=== PATIENT | female | born 1930 | race Caucasian/White ===

== ENCOUNTER → 2017-01-14 | Outpatient (CLI) | payer MEDICARE, BC ==
--- NOTE | 2017-01-16 07:00 | MM ---
Reason for exam: screening (asymptomatic). Last mammogram was performed 2 years and 7 months ago. History: Patient is postmenopausal. Family history of breast cancer in sister at age 77. Physical Findings: A clinical breast exam by your physician is recommended on an annual basis and results should be correlated with mammographic findings. MG Screening Mammo w CAD Bilateral CC and MLO view(s) were taken. Prior study comparison: June 16, 2014, right breast MG diagnostic mammo RT w CAD. November 12, 2013, right breast MG work up mamm w CAD RT. November 06, 2013, bilateral MG screening mammo w CAD. November 05, 2012, bilateral digital screening mammo w/CAD. There are scattered fibroglandular densities. No significant changes when compared with prior studies. ASSESSMENT: Negative, BI-RAD 1 RECOMMENDATION: Routine screening mammogram of both breasts in 1 year.
== END | disposition home or self-care (01) ==
LOC: RADMAMWWP 12:47
PROVIDERS: ATTEND Family Medicine
DX: Z12.31 Encounter for screening mammogram for malignant neoplasm of breast (principal)

== ENCOUNTER → 2019-03-31 | Outpatient (CLI) | payer MEDICARE ==
--- NOTE | 2019-04-02 09:56 | MM ---
Reason for exam: screening (asymptomatic). Last mammogram was performed 1 year and 1 month ago. History: Patient is postmenopausal. Family history of breast cancer in sister at age 77. Physical Findings: A clinical breast exam by your physician is recommended on an annual basis and results should be correlated with mammographic findings. MG Screening Mammo w CAD Bilateral CC and MLO view(s) were taken. Prior study comparison: March 13, 2018, bilateral MG 3d screening mammo w/cad. January 14, 2017, bilateral MG screening mammo w CAD. There are scattered fibroglandular densities. No significant changes when compared with prior studies. ASSESSMENT: Benign, BI-RAD 2 RECOMMENDATION: Routine screening mammogram of both breasts in 1 year.
== END | disposition home or self-care (01) ==
LOC: RADMAMWWP 14:59
PROVIDERS: ATTEND Family Medicine
DX: Z12.31 Encounter for screening mammogram for malignant neoplasm of breast (principal)
CPT/HCPCS: 77067

== ENCOUNTER 2019-07-15 09:06 | Inpatient (IN) | payer MEDICARE ==
[2019-07-15] MEDS ORDERED: SODIUM CHLORIDE 0.9% 1,000 ML IV STA (09:43)
[2019-07-15] MEDS ORDERED: PANTOPRAZOLE 40 MG/10 ML VIAL IVP STA (09:44)
[2019-07-15] MEDS ORDERED: ONDANSETRON 4 MG/2 ML VIAL IVP STA (09:44)
--- NOTE | 2019-07-15 10:21 | ED ---
General Adult HPI - General Chief complaint: Nausea/Vomiting/Diarrhea Stated complaint: Vomiting blood Time Seen by Provider: 07/15/19 09:37 Source: patient, RN notes reviewed Mode of arrival: ambulatory Limitations: no limitations - History of Present Illness Initial comments: This an 88-year-old female presents emergency Department chief complaint of nausea vomiting. Patient states that she has been vomiting for most of the night. Patient has several episodes of emesis she states that she noticed that she started having bright red blood. She has no significant abdominal pain states she has mild discomfort. No chest pain or shortness breath no headache or dizziness. Patient did not take any current blood thinners. Denies any recent diarrhea constipation. Patient and family that she ate something bad last night. 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 She does admit she takes insulin her blood sugars have been within normal limits. Patient has no complaints is dysuria, hematuria. Patient states that her emesis contained bright red blood there is no coffee-ground emesis. - Related Data Home Medications Medication Instructions Recorded Confirmed Aspirin 81 mg PO HS 01/19/15 07/15/19 Insulin Aspart [NovoLOG] See Protocol SQ AC-TID 01/19/15 07/15/19 Insulin Glargine [Lantus] 10 - 14 unit SQ HS 01/19/15 07/15/19 Lisinopril [Zestril] 10 mg PO HS 01/19/15 07/15/19 Calcium Carbonate [Calcium] 600 mg PO DAILY 07/15/19 07/15/19 Cholecalciferol [Vitamin D3 (25 1,000 unit PO DAILY 07/15/19 07/15/19 Mcg = 1000 Iu)] Multivitamins, Thera [Multivitamin 1 tab PO DAILY 07/15/19 07/15/19 (formulary)] Vitamin E 1,000 unit PO DAILY 07/15/19 07/15/19 Allergies Allergy/AdvReac Type Severity Reaction Status Date / Time Penicillins Allergy Rash/Hives Verified 07/15/19 11:14 Review of Systems ROS Statement: Those systems with pertinent positive or pertinent negative responses have been documented in the HPI. ROS Other: All systems not noted in ROS Statement are negative. Past Medical History Past Medical History: Diabetes Mellitus, Hyperlipidemia, Hypertension History of Any Multi-Drug Resistant Organisms: None Reported Additional Past Surgical History / Comment(s): "part of pancreas removed" "exploratory surgery on my female parts" Past Psychological History: No Psychological Hx Reported Smoking Status: Never smoker Past Alcohol Use History: None Reported Past Drug Use History: None Reported General Exam Limitations: no limitations General appearance: alert, in no apparent distress Head exam: Present: atraumatic, normocephalic, normal inspection Eye exam: Present: normal appearance, PERRL, EOMI. Absent: scleral icterus, conjunctival injection, periorbital swelling ENT exam: Present: normal exam, normal oropharynx, mucous membranes moist Neck exam: Present: normal inspection, full ROM. Absent: tenderness, meningismus, lymphadenopathy Respiratory exam: Present: normal lung sounds bilaterally. Absent: respiratory distress, wheezes, rales, rhonchi, stridor Cardiovascular Exam: Present: regular rate, normal rhythm, normal heart sounds. Absent: systolic murmur, diastolic murmur, rubs, gallop, clicks GI/Abdominal exam: Present: soft, normal bowel sounds. Absent: distended, tende rness, guarding, rebound, rigid Neurological exam: Present: alert, oriented X3 Skin exam: Present: warm, dry, intact, normal color. Absent: rash Course Vital Signs 07/15/19 07/15/19 07/15/19 09:14 10:26 12:12 Temperature 97.9 F Pulse Rate 84 70 Respiratory 20 18 18 Rate Blood Pressure 163/80 147/7 O2 Sat by Pulse 100 96 Oximetry EKG Findings - EKG Comments: EKG Findings:: EKG performed at 11:58 sinus rhythm with first-degree AV block rate of 69 OR to 36 QRS 80 QT/QTC 396 for 17 there is some mild changes in lateral leads, inferior leads have no acute changes compared to prior. Medical Decision Making - Medical Decision Making Patient's hemoglobin is stable, mild leukocytosis 11.4, troponin is elevated at 0.175, there. Changes in lateral leads though she has no complaints of chest pain. Patient did have episodes of hematemesis aspirin, heparin will be held at this time. She will be admitted for suture troponins, further evaluation with cardiology possible GI. Patient will be admitted to but has not. - Lab Data Result diagrams: 07/15/19 10:10 07/15/19 10:10 Lab Results 07/15/19 07/15/19 07/15/19 Range/Units 10:10 10:10 10:10 WBC 11.1 H (3.8-10.6) k/uL RBC 4.21 (3.80-5.40) m/uL Hgb 13.2 (11.4-16.0) gm/dL Hct 39.1 (34.0-46.0) % MCV 92.8 (80.0-100.0) fL MCH 31.3 (25.0-35.0) pg MCHC 33.8 (31.0-37.0) g/dL RDW 13.0 (11.5-15.5) % Plt Count 199 (150-450) k/uL Neutrophils % 89 % Lymphocytes % 5 % Monocytes % 4 % Eosinophils % 1 % Basophils % 0 % Neutrophils # 9.9 H (1.3-7.7) k/uL Lymphocytes # 0.6 L (1.0-4.8) k/uL Monocytes # 0.4 (0-1.0) k/uL Eosinophils # 0.1 (0-0.7) k/uL Basophils # 0.0 (0-0.2) k/uL PT 10.5 (9.0-12.0) sec INR 1.0 (<1.2) APTT 22.7 (22.0-30.0) sec Sodium 136 L (137-145) mmol/L Potassium 4.0 (3.5-5.1) mmol/L Chloride 103 (98-107) mmol/L Carbon Dioxide 27 (22-30) mmol/L Anion Gap 6 mmol/L BUN 23 H (7-17) mg/dL Creatinine 0.71 (0.52-1.04) mg/dL Est GFR (CKD-EPI)AfAm 88 (>60 ml/min/1.73 sqM) Est GFR (CKD-EPI)NonAf 77 (>60 ml/min/1.73 sqM) Glucose 232 H (74-99) mg/dL Plasma Lactic Acid Brday (0.7-2.0) mmol/L Calcium 9.3 (8.4-10.2) mg/dL Magnesium 1.9 (1.6-2.3) mg/dL Total Bilirubin 1.1 (0.2-1.3) mg/dL AST 28 (14-36) U/L ALT 17 (4-34) U/L Alkaline Phosphatase 84 (38-126) U/L Troponin I (0.000-0.034) ng/mL Total Protein 6.7 (6.3-8.2) g/dL Albumin 4.0 (3.5-5.0) g/dL Lipase 48 (23-300) U/L 07/15/19 07/15/19 Range/Units 10:10 10:10 WBC (3.8-10.6) k/uL RBC (3.80-5.40) m/uL Hgb (11.4-16.0) gm/dL Hct (34.0-46.0) % MCV (80.0-100.0) fL MCH (25.0-35.0) pg MCHC (31.0-37.0) g/dL RDW (11.5-15.5) % Plt Count (150-450) k/uL Neutrophils % % Lymphocytes % % Monocytes % % Eosinophils % % Basophils % % Neutrophils # (1.3-7.7) k/uL Lymphocytes # (1.0-4.8) k/uL Monocytes # (0-1.0) k/uL Eosinophils # (0-0.7) k/uL Basophils # (0-0.2) k/uL PT (9.0-12.0) sec INR (<1.2) APTT (22.0-30.0) sec Sodium (137-145) mmol/L Potassium (3.5-5.1) mmol/L Chloride (98-107) mmol/L Carbon Dioxide (22-30) mmol/L Anion Gap mmol/L BUN (7-17) mg/dL Creatinine (0.52-1.04) mg/dL Est GFR (CKD-EPI)AfAm (>60 ml/min/1.73 sqM) Est GFR (CKD-EPI)NonAf (>60 ml/min/1.73 sqM) Glucose (74-99) mg/dL Plasma Lactic Acid Brady 1.1 (0.7-2.0) mmol/L Calcium (8.4-10.2) mg/dL Magnesium (1.6-2.3) mg/dL Total Bilirubin (0.2-1.3) mg/dL AST (14-36) U/L ALT (4-34) U/L Alkaline Phosphatase (38-126) U/L Troponin I 0.175 H* (0.000-0.034) ng/mL Total Protein (6.3-8.2) g/dL Albumin (3.5-5.0) g/dL Lipase (23-300) U/L Disposition Clinical Impression: Nausea & vomiting, Hematemesis, Elevated troponin Disposition: ADMITTED IP TO THIS HOSP Condition: Fair Referrals: Bea Alvarez MD [Primary Care Provider] - 1-2 days
[2019-07-15 10:36] LABS: Basophils % (A) 0 %; Eosinophils # (A) 0.1 k/uL (0-0.7); Eosinophils % (A) 1 %; HCT 39.1 % (34.0-46.0); HGB 13.2 gm/dL (11.4-16.0); Lymphocytes # (A) 0.6 k/uL (1.0-4.8); Lymphocytes % (A) 5 %; MCH 31.3 pg (25.0-35.0); MCHC 33.8 g/dL (31.0-37.0); MCV 92.8 fL (80.0-100.0); Mean Platelet Volume 7.9; Monocytes # (A) 0.4 k/uL (0-1.0); Monocytes % (A) 4 %; Neutrophils # (A) 9.9 k/uL (1.3-7.7); Neutrophils % (A) 89 %; Platelet Count 199 k/uL (150-450); RBC 4.21 m/uL (3.80-5.40); WBC 11.1 k/uL (3.8-10.6)
[2019-07-15 10:46] LABS: ALT 17 U/L (4-34); AST 28 U/L (14-36); African American GFR (CKD) 88 (>60 ml/min/1.73 sqM); Alkaline Phosphatase 84 U/L (38-126); Anion Gap 6 mmol/L; Blood Urea Nitrogen 23 mg/dL (7-17); Calcium 9.3 mg/dL (8.4-10.2); Carbon Dioxide 27 mmol/L (22-30); Chloride 103 mmol/L (98-107); Glucose 232 mg/dL (74-99); Magnesium 1.9 mg/dL (1.6-2.3); Non-African American GFR(CKD) 77 (>60 ml/min/1.73 sqM); Sodium 136 mmol/L (137-145); Total Bilirubin 1.1 mg/dL (0.2-1.3); Total Protein 6.7 g/dL (6.3-8.2)
[2019-07-15 10:51] LABS: Partial Thromboplastin Time 22.7 sec (22.0-30.0); Prothrombin Time 10.5 sec (9.0-12.0)
[2019-07-15] MEDS ORDERED: NITROGLYCERIN SL TABS 0.4 MG TAB SUBLINGUAL PRN (12:21)
--- NOTE | 2019-07-15 14:07 | XR ---
EXAMINATION TYPE: XR chest 2V DATE OF EXAM: 07/15/2019 COMPARISON: NONE TECHNIQUE: PA and lateral views submitted. HISTORY: Vomiting and pain FINDINGS: The lungs are clear and there is no pneumothorax, pleural effusion, or focal pneumonia. Degenerative change of the spine. Use osteopenia shoulders. Biapical. No overt failure. IMPRESSION: 1. No acute process.
--- NOTE | 2019-07-15 14:32 | P.HPIM ---
History of Present Illness 88-year-old female is being admitted for hematemesis and elevated troponin. She had multiple episodes of nausea vomiting along with diffuse nonspecific, no localized diffuse abdominal pain started yesterday which was mostly crampy in nature after multiple episodes of vomiting patient had an episode of hematemesis. Patient denied any obvious chest pain denied any shortness of breath. Patient nausea vomiting started after eating a steak sandwich. Since then patient didn't vomit denied any dark stools or hematochezia. On regular evaluation in ER patient is found to have mildly elevated troponin of 0.[address] depressions in the lateral leads because of which are cardiology was consulted and gastroneurology was consulted for hematemesis and patient is being admitted. Patient is presently on Protonix Review of Systems REVIEW OF SYSTEMS: CONSTITUTIONAL: No fever, no malaise, no fatigue. HEENT: No recent visual problems or hearing problems. Denied any sore throat. CARDIOVASCULAR: No chest pain, orthopnea, PND, no palpitations, no syncope. PULMONARY: No shortness of breath, no cough, no hemoptysis. GASTROINTESTINAL: As mentioned in HPI NEUROLOGICAL: No headaches, no weakness, no numbness. HEMATOLOGICAL: Denies any bleeding or petechiae. GENITOURINARY: Denies any burning micturition, frequency, or urgency. MUSCULOSKELETAL/RHEUMATOLOGICAL: Denies any joint pain, swelling, or any muscle pain. ENDOCRINE: Denies any polyuria or polydipsia. The rest of the 14-point review of systems is negative. Past Medical History Past Medical History: Diabetes Mellitus, Hyperlipidemia, Hypertension History of Any Multi-Drug Resistant Organisms: None Reported Additional Past Surgical History / Comment(s): "part of pancreas removed" "exploratory surgery on my female parts" Past Psychological History: No Psychological Hx Reported Smoking Status: Never smoker Past Alcohol Use History: None Reported Past Drug Use History: None Reported Medications and Allergies Home Medications Medication Instructions Recorded Confirmed Type Aspirin 81 mg PO HS 01/19/15 07/15/19 History Insulin Aspart [NovoLOG] See Protocol SQ AC-TID 01/19/15 07/15/19 History Insulin Glargine [Lantus] 10 - 14 unit SQ HS 01/19/15 07/15/19 History Lisinopril [Zestril] 10 mg PO HS 01/19/15 07/15/19 History Calcium Carbonate [Calcium] 600 mg PO DAILY 07/15/19 07/15/19 History Cholecalciferol [Vitamin D3 (25 1,000 unit PO DAILY 07/15/19 07/15/19 History Mcg = 1000 Iu)] Multivitamins, Thera [Multivitamin 1 tab PO DAILY 07/15/19 07/15/19 History (formulary)] Vitamin E 1,000 unit PO DAILY 07/15/19 07/15/19 History Allergies Allergy/AdvReac Type Severity Reaction Status Date / Time Penicillins Allergy Rash/Hives Verified 07/15/19 11:14 Physical Exam Vitals: Vital Signs Temp Pulse Resp BP Pulse Ox 07/15/19 12:30 74 18 138/79 97 07/15/19 12:12 18 07/15/19 10:26 70 18 147/7 96 07/15/19 09:14 97.9 F 84 20 163/80 100 Intake and Output 07/14/19 07/15/19 07/15/19 22:59 06:59 14:59 Other: Weight 52.345 kg PHYSICAL EXAMINATION: GENERAL: The patient is alert and oriented x3, not in any acute distress. Well developed, well nourished. HEENT: Pupils are round and equally reacting to light. EOMI. No scleral icterus. No conjunctival pallor. Normocephalic, atraumatic. No pharyngeal erythema. No thyromegaly. CARDIOVASCULAR: S1 and S2 present. No murmurs, rubs, or gallops. PULMONARY: Chest is clear to auscultation, no wheezing or crackles. ABDOMEN: Soft, nontender, nondistended, normoactive bowel sounds. No palpable organomegaly. MUSCULOSKELETAL: No joint swelling or deformity. EXTREMITIES: No cyanosis, clubbing, or pedal edema. NEUROLOGICAL: Gross neurological examination did not reveal any focal deficits. SKIN: No rashes. Results CBC & Chem 7: 07/15/19 10:10 07/15/19 10:10 Labs: Abnormal Lab Results - Last 24 Hours (Table) 07/15/19 07/15/19 07/15/19 Range/Units 10:10 10:10 10:10 WBC 11.1 H (3.8-10.6) k/uL Neutrophils # 9.9 H (1.3-7.7) k/uL Lymphocytes # 0.6 L (1.0-4.8) k/uL Sodium 136 L (137-145) mmol/L BUN 23 H (7-17) mg/dL Glucose 232 H (74-99) mg/dL Troponin I 0.175 H* (0.000-0.034) ng/mL Assessment and Plan Plan: -Hematemesis: Probably secondary to Kristin Smita tear or gastritis patient will be started on Protonix gastroenterology was consulted from ER. -Elevated troponins with some ST depressions: Cardiology was consulted since the patient had a recent hematemesis patient is not being started on heparin, We cannot rule out non-ST elevation microinfarction yet we'll repeat 2 more sets of troponins and cardiology will evaluate the patient echocardiogram will be obtained. Although patient denied any obvious chest pain had symptoms appears to be in the abdomen and epigastric area. -Type 2 diabetes mellitus: Patient will be resumed on long-acting insulin p atient is on a very low-dose of for long-acting insulin. Which year now she isn't too it's appropriate to continue and patient will be on sliding scale insulin pre-meals -Hyperlipidemia -Hypertension
[2019-07-15 18:22] LABS: Glucose,Whole Blood 175 mg/dL (75-99)
[2019-07-15] MEDS: INSULIN ASPART (NovoLOG) 100 UNIT/ML VIAL SQ SCH ×2 (18:43→21:11)
--- NOTE | 2019-07-15 18:46 | CONS ---
CONSULTATION REASON FOR CONSULTATION: Elevated troponin. Mrs. Margot Fountain is an 88-year-old lady with a history of type 2 diabetes mellitus who uses the Lantus and NovoLog combination. She also takes an aspirin a day and some multivitamins. She has underlying hypertension and takes lisinopril. She came into the hospital with complaints of having some abdominal pain and nausea, some vomiting and also she saw some blood in her vomitus. I am not sure if this is a clear-cut hematemesis or not. However, she came with these symptoms and initial blood work included a troponin which was 0.175. The patient absolutely and very adamantly refuses that she has any chest discomfort. Her abdominal pain has also resolved. She is resting comfortably without symptoms. PAST MEDICAL HISTORY: 1. Type 2 diabetes. 2. Hypertension. 3. No evidence of any prior myocardial infarction or CVA. MEDICATIONS: At home include: Multivitamins, lisinopril 10 mg daily, Lantus and NovoLog insulin, aspirin, calcium supplements. ALLERGIES: PENICILLIN. REVIEW OF SYSTEMS: Unremarkable other than above-mentioned facts. PHYSICAL EXAMINATION: Blood pressure 138/70, pulse rate 74 per minute. HEENT unremarkable. Fundus was not examined by me. Neck supple. There is no JVD. I do not hear a carotid bruit. Heart exam is S1, S2 heard normally. There is a short systolic murmur at the base and left sternal border. Lungs revealed decent air entry. Abdomen is soft. There is no significant tenderness. Bowel sounds are normal. Lower extremities reveal palpable pulses. No edema. Central nervous system is normal. EKG revealed sinus mechanism with a QS pattern in leads V1 to V4 with the nonspecific ST changes. On reviewing the old EKG from 2015, the lateral wall ST-segment depression changes appear to be new. IMPRESSION: 1. Nausea, vomiting, probably enteritis, probably some gastroenteritis. 2. Elevated troponin without symptoms of chest pain and not suggestive of myocardial injury. 3. Hypertension. 4. Type 2 diabetes. RECOMMENDATION: I am recommending serial troponins to be performed. I am also suggesting that we obtain an echocardiogram to assess LV function. We will add a small dose of beta tashia in the form of metoprolol tartrate 12.5 mg b.i.d. to her regimen. I will place her on subcu heparin 3000 q.12 hours and obtain serial troponins, CBC, BMP in the morning. There is a question of hematemesis and therefore I am not recommending IV heparin. I discussed my thoughts in detail with the patient. Thank you very much for the consult. SUMMER / TANESHA: [id number] /
[2019-07-15 20:11] LABS: Glucose,Whole Blood 231 mg/dL (75-99)
[2019-07-15 20:35] VITALS: RESP 18
[2019-07-15] MEDS ORDERED: LISINOPRIL 10 MG TAB PO SCH (21:00)
[2019-07-15] MEDS ORDERED: INSULIN DETEMIR (LEVEMIR) 100 UNIT/ML SYR SQ SCH (21:00)
[2019-07-15] MEDS: HEPARIN SODIUM,PORCINE 5,000 UNIT/ML 1 ML VIAL SQ SCH (21:11)
[2019-07-15] MEDS: METOPROLOL TARTRATE 12.5 MG TAB PO SCH (21:11)
[2019-07-15] MEDS: PANTOPRAZOLE 40 MG/10 ML VIAL IVP SCH (21:12)
--- NOTE | 2019-07-15 23:49 | CONS ---
CONSULTATION DATE OF DICTATION: July 15, 2019. REQUESTING PHYSICIAN: Dr. Erazo. REASON FOR CONSULTATION: Nausea, vomiting, and rectal bleeding. HISTORY OF PRESENT ILLNESS: The patient is an 88 -year-old female came into the emergency room complaining of acute onset of nausea, vomiting and one episode of hematemesis. She stated that she started having the symptoms yesterday evening associated with lower abdominal pain. She came into the emergency room and was noted to have normal hemoglobin 13 g/dL. Since being in the ER, she did not have any further episodes of nausea, vomiting. Abdominal pain has completely resolved. In fact she just ate a full sandwich with no complaints. She never had these symptoms in the past. She denies any recent NSAID use. She also was noted to have mild elevation of troponin and some EKG changes and hence cardiology has been consulted. PAST MEDICAL HISTORY: Significant for diabetes mellitus, hypertension, hyperlipidemia. SURGICAL HISTORY: Some kind of abdominal surgery. MEDICATIONS: At home include aspirin, insulin, lisinopril, calcium, vitamin D3, multivitamin, and vitamin E. ALLERGIES: PENICILLIN. SOCIAL HISTORY: No smoking. No alcohol use. FAMILY HISTORY: Unremarkable. REVIEW OF SYSTEMS: No chest pain, or shortness of breath. Genitourinary: No dysuria or hematuria. MUSCULOSKELETAL unremarkable. SKIN unremarkable. ENDOCRINE unremarkable. PSYCHIATRIC unremarkable. NEUROLOGY unremarkable. ENT/vision unremarkable. CONSTITUTIONAL: No recent weight loss. No fever, chills, night sweats. PHYSICAL EXAMINATION: She appears comfortable. No apparent distress. Vital signs are stable. Blood pressure 152/86, pulse rate 85 per minute and afebrile. HEENT examination unremarkable. Conjunctivae pink. Sclerae anicteric. Oral cavity no lesions. NECK: No JVD or lymph node enlargement. The chest was clear to auscultation. HEART: Regular rate and rhythm. ABDOMEN: Soft. Nontender. Nondistended. Bowel sounds positive. No organomegaly. EXTREMITIES: No pedal edema. Skin no rashes. NEUROLOGIC: Alert and oriented x3. No focal deficits. LABS: WBC 11.1, hemoglobin 13.2, platelets 199, BUN 23, creatinine 0.71. Troponin 0.175. BUN 23, creatinine 0.8. IMPRESSION: 1. This is a lady who presents to the hospital with acute onset of epigastric pain associated with nausea, vomiting, and one episode of hematemesis that happened early this morning. Her hemoglobin is stable at 13.2 g/dL. Since being in the ER, she had no further episodes of bleeding. No prior history of peptic ulcer disease or recent NSAID use. Most likely dealing with either acute gastritis or as Kristin Garcia tear. 2. EKG changes with elevated troponin. Cardiology has been consulted. 3. History of diabetes mellitus. 4. History of hypertension. RECOMMENDATIONS: 1. Continue with IV Protonix 40 mg daily. 2. CBC on a daily basis. 3. No plans for any endoscopy intervention at the present time. However, if she has more bleeding, we will consider further workup. Thank you for this consultation. We will follow with you closely during her hospital stay. MMODL / IJN: [id number] /
[2019-07-16 06:12] LABS: Glucose,Whole Blood 60 mg/dL (75-99)
[2019-07-16 06:30] LABS: Glucose,Whole Blood 86 mg/dL (75-99)
[2019-07-16 06:30] LABS: Basophils # (A) 0.1 k/uL (0-0.2); Basophils % (A) 1 %; Eosinophils # (A) 0.1 k/uL (0-0.7); Eosinophils % (A) 1 %; HCT 35.7 % (34.0-46.0); HGB 11.9 gm/dL (11.4-16.0); Lymphocytes # (A) 1.5 k/uL (1.0-4.8); Lymphocytes % (A) 21 %; MCHC 33.3 g/dL (31.0-37.0); MCV 93.2 fL (80.0-100.0); Mean Platelet Volume 7.9; Monocytes # (A) 0.4 k/uL (0-1.0); Monocytes % (A) 6 %; Neutrophils # (A) 4.9 k/uL (1.3-7.7); Neutrophils % (A) 70 %; Platelet Count 201 k/uL (150-450); RBC 3.83 m/uL (3.80-5.40); RDW 12.9 % (11.5-15.5)
[2019-07-16] MEDS: INSULIN ASPART (NovoLOG) 100 UNIT/ML VIAL SQ SCH ×2 (06:43→12:26)
[2019-07-16 06:46] LABS: Potassium 3.7 mmol/L (3.5-5.1)
[2019-07-16] MEDS: HEPARIN SODIUM,PORCINE 5,000 UNIT/ML 1 ML VIAL SQ SCH (09:12)
[2019-07-16] MEDS: PANTOPRAZOLE 40 MG/10 ML VIAL IVP SCH (09:12)
[2019-07-16] MEDS: METOPROLOL TARTRATE 12.5 MG TAB PO SCH (09:13)
--- NOTE | 2019-07-16 11:39 | ECHOF ---
Referral Reason:NSTEMI MEASUREMENTS -------- HEIGHT: 152.4 cm WEIGHT: 52.2 kg BP: RVIDd: 3.0 cm (< 3.3) IVSd: 1.1 cm (0.6 - 1.1) LVIDd: 3.3 cm (3.9 - 5.3) LVPWd: 1.4 cm (0.6 - 1.1) IVSs: 1.2 cm LVIDs: 2.4 cm LVPWs: 1.5 cm LA Diam: 2.7 cm (2.7 - 3.8) Ao Diam: 2.6 cm (2.0 - 3.7) AV Cusp: 1.5 cm (1.5 - 2.6) LA Diam: 3.4 cm (2.7 - 3.8) MV EXCURSION: 17.007 mm (> 18.000) MV EF SLOPE: 57 mm/s (70 - 150) EPSS: 0.2 cm MV E Kendell: 0.52 m/s MV DecT: 278 ms MV A Kendell: 0.82 m/s MV E/A Ratio: 0.63 RAP: 5.00 mmHg RVSP: 24.85 mmHg FINDINGS -------- Sinus rhythm. This was a technically good study. The left ventricular size is normal. There is mild concentric left ventricular hypertrophy. Overa ll left ventricular systolic function is low-normal with, an EF between 50 - 55 %. The diastolic fi lling pattern is normal for the age of the patient 9.38. The right ventricle is normal in size. The left atrial size is normal. The right atrial size is normal. There is mild aortic valve sclerosis. There is mild aortic regurgitation. Mild mitral annular calcification present. Mild mitral regurgitation is present. Mild tricuspid regurgitation present. Right ventricular systolic pressure is normal at < 35 mmHg. There is no evidence of pulmonary hypertension. There is no pulmonic regurgitation present. The aortic root size is normal. There is no pericardial effusion. CONCLUSIONS -------- 1. Sinus rhythm. 2. This was a technically good study. 3. The left ventricular size is normal. 4. There is mild concentric left ventricular hypertrophy. 5. Overall left ventricular systolic function is low-normal with, an EF between 50 - 55 %. 6. The diastolic filling pattern is normal for the age of the patient 9.38 7. The right ventricle is normal in size. 8. The left atrial size is normal. 9. The right atrial size is normal. 10. There is mild aortic valve sclerosis. 11. There is mild aortic regurgitation. 12. Mild mitral annular calcification present. 13. Mild mitral regurgitation is present. 14. Mild tricuspid regurgitation present. 15. Right ventricular systolic pressure is normal at < 35 mmHg. 16. There is no evidence of pulmonary hypertension. 17. There is no pulmonic regurgitation present. 18. The aortic root size is normal. 19. There is no pericardial effusion. MITER CUTTER: Hazel Dickinson RDCS
[2019-07-16 11:49] LABS: Glucose,Whole Blood 152 mg/dL (75-99)
--- NOTE | 2019-07-16 12:11 | PN ---
PROGRESS NOTE Mrs Fountain is a lady who was admitted yesterday with abdominal discomfort, nausea, vomiting, which has resolved. She probably had some gastroenteritis. She did not have any chest discomfort. She has underlying diabetes. This morning she feels remarkably well. She ate her breakfast, has no chest pain or shortness of breath. Her troponin profile does not suggest any myocardial injury. Echocardiogram is still pending at the time of this dictation. Her vitals are stable. There is no JVD. S1-S2 heard normally. short systolic murmur noted. Lungs are clear. Abdomen is soft. There is no tenderness. Bowel sounds are normal. Lower extremities revealed diminished pulses. No edema. Central nervous system is normal. I am recommending that we continue current medications. I will review the echocardiogram. We will see her as needed. Her troponin profile does not suggest myocardial injury. No intervention is necessary from a cardiac standpoint. We will review echo. MMODL / IJN: [id number] /
[2019-07-16 12:26] VITALS: BP 131/82; PULSE 66; TEMP 98.7
--- NOTE | 2019-07-16 16:37 | P.DS ---
Providers Date of admission: 07/15/19 12:22 Attending physician: Gualberto Erazo Consults: 07/15/19 12:21 Consult Physician Urgent Consulting Provider: Lisa Greenfield Consult Reason/Comments: Elevated troponin Do you want consulting provider notified?: Yes 07/15/19 12:29 Consult Physician Urgent Consulting Provider: Christiane Benz Consult Reason/Comments: Hematemesis Do you want consulting provider notified?: Yes [facility] Course: 88-year-old female is being admitted for hematemesis and elevated troponin. She had multiple episodes of nausea vomiting along with diffuse nonspecific, no localized diffuse abdominal pain started yesterday which was mostly crampy in nature after multiple episodes of vomiting patient had an episode of hematemesis. Patient denied any obvious chest pain denied any shortness of breath. Patient nausea vomiting started after eating a steak sandwich. Since then patient didn't vomit denied any dark stools or hematochezia. On regular evaluation in ER patient is found to have mildly elevated troponin of 0.[address] depressions in the lateral leads because of which are cardiology was consulted and gastroneurology was consulted for hematemesis and patient is being admitted. Patient is presently on Protonix 07/16/2019 Patient doesn't have any more episodes of nausea vomiting or hematemesis. Patient was evaluated by cardiology troponin actually trended down that is was only minimal elevation not and up to say acute myocardial infarction patient had an echocardiogram which did not show any wall motion abnormalities normal ejection fraction they cleared her for discharge. Patient will be discharged today on Prilosec for 14 days. PHYSICAL EXAMINATION: GENERAL: The patient is alert and oriented x3, not in any acute distress. Well developed, well nourished. HEENT: Pupils are round and equally reacting to light. EOMI. No scleral icterus. No conjunctival pallor. Normocephalic, atraumatic. No pharyngeal erythema. No thyromegaly. CARDIOVASCULAR: S1 and S2 present. No murmurs, rubs, or gallops. PULMONARY: Chest is clear to auscultation, no wheezing or crackles. ABDOMEN: Soft, nontender, nondistended, normoactive bowel sounds. No palpable organomegaly. MUSCULOSKELETAL: No joint swelling or deformity. EXTREMITIES: No cyanosis, clubbing, or pedal edema. NEUROLOGICAL: Gross neurological examination did not reveal any focal deficits. SKIN: No rashes. Assessment and Plan Plan: -Hematemesis: Probably secondary to Kristin Smita tear or gastritis hematemesis resolved -Elevated troponins with some ST depressions: No evidence of acute myocardial infarction echocardiogram as mentioned above patient has nonspecific elevation and mild elevation of troponins. -Type 2 diabetes mellitus: -Hyperlipidemia -Hypertension Patient Condition at Discharge: Stable Plan - Discharge Summary New Discharge Prescriptions: New Omeprazole [PriLOSEC] 40 mg PO AC-BRKFST #14 capsule.dr Montes Lisinopril [Zestril] 10 mg PO HS Insulin Aspart [NovoLOG] See Protocol SQ AC-TID Aspirin 81 mg PO HS Insulin Glargine [Lantus] 10 - 14 unit SQ HS Cholecalciferol [Vitamin D3 (25 Mcg = 1000 Iu)] 1,000 unit PO DAILY Vitamin E 1,000 unit PO DAILY Multivitamins, Thera [Multivitamin (formulary)] 1 tab PO DAILY Calcium Carbonate [Calcium] 600 mg PO DAILY Discharge Medication List Aspirin 81 mg PO HS 01/19/15 [History] Insulin Aspart [NovoLOG] See Protocol SQ AC-TID 01/19/15 [History] Insulin Glargine [Lantus] 10 - 14 unit SQ HS 01/19/15 [History] Lisinopril [Zestril] 10 mg PO HS 01/19/15 [History] Calcium Carbonate [Calcium] 600 mg PO DAILY 07/15/19 [History] Cholecalciferol [Vitamin D3 (25 Mcg = 1000 Iu)] 1,000 unit PO DAILY 07/15/19 [History] Multivitamins, Thera [Multivitamin (formulary)] 1 tab PO DAILY 07/15/19 [Hi story] Vitamin E 1,000 unit PO DAILY 07/15/19 [History] Omeprazole [PriLOSEC] 40 mg PO AC-BRKFST #14 capsule. 07/16/19 [Rx] Follow up Appointment(s)/Referral(s): Bea Alvarez MD [Primary Care Provider] - 07/23/19 9:30 am Christiane Benz MD [STAFF PHYSICIAN] - 08/06/19 10:00 am (With Dagmar DICK) Patient Instructions/Handouts: Diet for Stomach Ulcers and Gastritis (ED), Gastroenteritis (DC), Hematemesis (ED) Discharge Disposition: HOME SELF-CARE
== END 2019-07-16 13:20 | disposition home or self-care (01) | DRG 370 ==
LOC: EC 09:06 → 3SCARD 12:22
PROVIDERS: ADMIT Internal Medicine; ATTEND Internal Medicine
DX: K22.6 Gastro-esophageal laceration-hemorrhage syndrome (principal); K29.71 Gastritis, unspecified, with bleeding; E11.9 Type 2 diabetes mellitus without complications; E78.5 Hyperlipidemia, unspecified; I10 Essential (primary) hypertension; R01.1 Cardiac murmur, unspecified; R79.89 Other specified abnormal findings of blood chemistry; Z79.4 Long term (current) use of insulin; Z79.82 Long term (current) use of aspirin; Z79.899 Other long term (current) drug therapy; Z88.0 Allergy status to penicillin
CPT/HCPCS: 36415; 71046; 80048; 80053; 80061; 82009; 83605; 83690; 83735; 84484; 85025; 85610; 85730; 87502; 93005; 93306; 94760; 96361; 96374; 96375; 99285